=== PATIENT | male | born 1965 | race African-American/Black ===

== ENCOUNTER 2017-05-29 07:24 | Emergency (ER) | payer BC ==
--- NOTE | 2017-05-29 07:50 | ER Document Report ---
HPI - HPI Patient complains to provider of: Right side neck swelling Onset: Other - 5-6 years Onset/Duration: Persistent Quality of pain: Achy Pain Level: 1 Context: Patient presents complaining of right-sided neck swelling for the past 5-6 years. Patient states that area has become a little larger in size over the past 2-3 months. Patient denies any fever, sore throat or ear pain. Patient denies any dental pain Associated Symptoms: Other - Right-sided neck swelling. denies: Fever Exacerbated by: Denies Relieved by: Denies Similar symptoms previously: No Recently seen / treated by doctor: No - ROS ROS below otherwise negative: Yes Systems Reviewed and Negative: Yes All other systems reviewed and negative - CONSTITUTIONAL Constitutional: DENIES: Fever, Chills - EENT EENT: DENIES: Sore Throat, Ear Pain, Congestion - NEURO Neurology: DENIES: Headache - GASTROINTESTINAL Gastrointestinal: DENIES: Nausea, Patient vomiting - MUSCULOSKELETAL Musculoskeletal: REPORTS: Neck Pain - Mild tenderness - DERM Skin Color: Normal Skin Problems: None Past Medical History - General Information source: Patient - Social History Smoking Status: Never Smoker Chew tobacco use (# tins/day): No Frequency of alcohol use: None Drug Abuse: Marijuana Occupation: [employer] Family History: Reviewed & Not Pertinent - Medical History Medical History: Negative Renal/ Medical History: Denies: Hx Peritoneal Dialysis Surgical Hx: Negative Vertical Provider Document - CONSTITUTIONAL Agree With Documented VS: Yes Exam Limitations: No Limitations General Appearance: WD/WN, No Apparent Distress - INFECTION CONTROL TRAVEL OUTSIDE OF THE [place] IN LAST 30 DAYS: No - HEENT HEENT: Atraumatic, Normocephalic. negative: Pharyngeal Exudate, Pharyngeal Tenderness, Pharyngeal Erythema, Tympanic Membrane Red, Tympanic Membrane Bulging - NECK Neck: Lymphadenopathy-Left, Lymphadenopathy-Right - large mildly tender node to r anterior cervical chain - RESPIRATORY Respiratory: Breath Sounds Normal, No Respiratory Distress, Chest Non-Tender O2 Sat by Pulse Oximetry: 99 - CARDIOVASCULAR Cardiovascular: Regular Rate, Regular Rhythm, No Murmur - BACK Back: Normal Inspection - MUSCULOSKELETAL/EXTREMETIES Musculoskeletal/Extremeties: MAEW - NEURO Level of Consciousness: Awake, Alert, Appropriate Motor/Sensory: No Motor Deficit - DERM Integumentary: Warm, Dry, No Rash Course - Re-evaluation Re-evalutation: 05/29/17 10:[address] Rios regarding patient's presentation CT report. Agrees with discharge plan of care and outpatient follow-up with ENT doctor - Vital Signs Vital signs: Temp Pulse Resp BP Pulse Ox 98.0 F 71 18 125/82 99 05/29/17 07:27 05/29/17 07:27 05/29/17 07:27 05/29/17 07:27 05/29/17 07:27 - Laboratory Result Diagrams: 05/29/17 08:22 05/29/17 08:22 Laboratory results interpreted by me: 05/29/17 10:13 Labs- Entire Visit 05/29/17 05/29/17 08:22 08:22 WBC 6.5 RBC 4.53 Hgb 14.6 Hct 42.9 MCV 95 MCH 32.3 MCHC 34.1 RDW 12.8 Plt Count 202 Seg Neutrophils % 48.4 Lymphocytes % 40.5 Monocytes % 9.6 Eosinophils % 1.1 Basophils % 0.4 Absolute Neutrophils 3.2 Absolute Lymphocytes 2.6 Absolute Monocytes 0.6 Absolute Eosinophils 0.1 Absolute Basophils 0.0 Sodium 141.5 Potassium 4.5 Chloride 104 Carbon Dioxide 28 Anion Gap 10 BUN 12 Creatinine 0.86 Est GFR ( Amer) > 60 Est GFR (Non-Af Amer) > 60 Glucose 92 Calcium 9.9 - Diagnostic Test Radiology reviewed: Reports reviewed Discharge - Discharge Clinical Impression: Salivary gland stone Condition: Stable Disposition: HOME, SELF-CARE Additional Instructions: Return immediately for any new or worsening symptoms Followup with your primary care provider, call tomorrow to make a followup appointment Follow-up with an ear nose and throat doctor for further management of the salivary gland stone Forms: Return to Work Referrals: [facility] [Provider Group] - Follow up in 3-5 days
[2017-05-29 08:32] LABS: ABSOLUTE EOSINOPHILS # (AUTO) 0.1 10^3/uL (0.0-0.6); ABSOLUTE LYMPHOCYTES (AUTO) 2.6 10^3/uL (0.5-4.7); ABSOLUTE MONOCYTES (AUTO) 0.6 10^3/uL (0.1-1.4); ABSOLUTE NEUT (AUTO) 3.2 10^3/uL (1.7-8.2); BASOPHILS % (AUTO) 0.4 % (0-2); EOSINOPHILS % (AUTO) 1.1 % (0-6); HEMATOCRIT 42.9 % (37.9-51.0); HEMOGLOBIN 14.6 g/dL (13.5-17.0); HGB HCT DIFFERENCE 0.9; LYMPHOCYTES % (AUTO) 40.5 % (13-45); MEAN CORPUSCULAR HEMOGLOBIN 32.3 pg (27.0-33.4); MEAN CORPUSCULAR HGB CONC 34.1 g/dL (32.0-36.0); MEAN CORPUSCULAR VOLUME 95 fl (80-97); MONOCYTES % (AUTO) 9.6 % (3-13); RED BLOOD COUNT 4.53 10^6/uL (4.35-5.55); RED CELL DISTRIBUTION WIDTH 12.8 % (11.5-14.0); SEGMENTED NEUTROPHILS % (AUTO) 48.4 % (42-78); WHITE BLOOD COUNT 6.5 10^3/uL (4.0-10.5)
[2017-05-29 08:45] LABS: ANION GAP 10 (5-19); BLOOD UREA NITROGEN 12 mg/dL (7-20); CALCIUM 9.9 mg/dL (8.4-10.2); CARBON DIOXIDE 28 mmol/L (22-30); CHLORIDE 104 mmol/L (98-107); CREATININE RESULT 0.86 mg/dL (0.52-1.25); GLUCOSE 92 mg/dL (75-110); POTASSIUM 4.5 mmol/L (3.6-5.0); SODIUM 141.5 mmol/L (137-145)
--- NOTE | 2017-05-29 09:35 | RADIOLOGY REPORT (SQ) ---
EXAM DESCRIPTION: CT SOFT TISSUE NECK WITH COMPLETED DATE/TIME: 05/29/2017 9:08 am REASON FOR STUDY: swelling r side of neck COMPARISON: None. TECHNIQUE: Post IV contrasted scanning from skull base through lung apices with review of bone, soft tissue and lung windows. Reconstructed coronal and sagittal MPR images reviewed. All images stored on PACS. All CT scanners at this facility use dose modulation, iterative reconstruction, and/or weight based d osing when appropriate to reduce radiation dose to as low as reasonably achievable (ALARA). [facility]: Dose Right [facility]: CareDose [facility]: Dose Right [facility]: Teradose 4D [facility]: [employer] CONTRAST TYPE AND DOSE: contrast/concentration: Isovue 370.00 mg/ml; Total Contrast Delivered: 75.0 ml; Total Saline Delivered: 53.4 ml RENAL FUNCTION: Creatinine 0.86 RADIATION DOSE: Up-to-date CT equipment and radiation dose reduction techniques were employed. CTDIv ol: 15.7 mGy. DLP: 497 mGy-cm. . LIMITATIONS: None. FINDINGS: SKULL BASE: Intact. MAJOR SALIVARY GLANDS: 7 mm stone in the right submandibular gland at the origin of Barber's duct. The right submandibular gland is slightly larger than the left but there is no abnormal density or schmitz rrounding inflammatory change to suggest sialoadenitis. Remaining submandibular glands are unremarka ble. LYMPHADENOPATHY: No adenopathy. MUCOSAL MASSES OR ASYMMETRY: Prominent lingular tonsils but no definite mass. LARYNX/CORDS: No abnormal findings. VASCULAR STRUCTURES: The major vessels are patent. LUNG APICES: Clear. BONES: Intact. Moderate to severe degenerative changes involving the cervical spine. THYROID: Normal size. No masses. PARANASAL SINUSES: Clear. OTHER: No other significant finding. IMPRESSION: 1. 7 mm stone in the right submandibular gland. The gland appears slightly enlarged bu t there is no definite sialoadenitis. 2. Prominent lingular tonsils. TECHNICAL DOCUMENTATION: JOB ID: [id number] Quality ID # [id number]: Final reports with documentation of one or more dose reduction techniques (e.g., Au tomated exposure control, adjustment of the mA and/or kV according to patient size, use of iterative reconstruction technique) 2010 [employer]- All Rights Reserved
[2017-05-29 10:32] VITALS: BP 121/82
== END 2017-05-29 10:26 | disposition home or self-care (01) ==
LOC: ER 07:24
DX: K11.5 Sialolithiasis (principal); R22.1 Localized swelling, mass and lump, neck; M54.2 Cervicalgia
CPT/HCPCS: 36415; 70491; 80048; 85025; 99283

== ENCOUNTER → 2017-11-20 | Outpatient (CLI) | payer BC ==
--- NOTE | 2017-11-20 15:54 | RADIOLOGY REPORT (SQ) ---
EXAM DESCRIPTION: U/S THYROID/SFT TISS HD NECK COMPLETED DATE/TIME: 11/20/2017 3:41 pm REASON FOR STUDY: NONTOXIC SINGLE NODULE E04.1 NONTOXIC SINGLE THYROID NODULE COMPARISON: CT soft tissue neck with contrast 05/29/2017 TECHNIQUE: Dynamic and static gandhi-scale images acquired of the thyroid gland. Selected additional c olor/power Doppler images recorded. All images stored to PACS. LIMITATIONS: None. FINDINGS: The thyroid gland is normal in size with normal echogenicity. No cysts. No focal nodules . Right lobe thyroid 3.8 x 2.1 x 1.9 cm in size. Left lobe thyroid 4.8 x 1.9 x 1.8 cm in size. Isthmus 3 mm in thickness IMPRESSION: NORMAL THYROID ULTRASOUND. TECHNICAL DOCUMENTATION: JOB ID: [id number] [employer]- All Rights Reserved
== END ==
LOC: RAD 15:01
PROVIDERS: ATTEND Otolaryngology
DX: E04.1 Nontoxic single thyroid nodule (principal)
CPT/HCPCS: 76536

== ENCOUNTER 2018-11-09 10:33 | Emergency (ER) | payer BC ==
[2018-11-09 10:43] VITALS: BP 131/90
--- NOTE | 2018-11-09 10:52 | ER Document Report ---
HPI - HPI Patient complains to provider of: Medication refill Time Seen by Provider: 11/09/18 10:42 Onset/Duration: Persistent Pain Level: Denies Context: Patient states that he ran out of Viagra 2 weeks ago and is requesting a refill here today. Patient states he takes Viagra for erectile dysfunction. Patient states that he has not gotten established with a primary doctor here locally after relocating to this area. Associated Symptoms: Other - Erectile dysfunction Exacerbated by: Denies Relieved by: Denies Similar symptoms previously: Yes Recently seen / treated by doctor: No - ROS ROS below otherwise negative: Yes Systems Reviewed and Negative: Yes All other systems reviewed and negative - CONSTITUTIONAL Constitutional: DENIES: Fever - DERM Skin Color: Normal Skin Problems: None Past Medical History - General Information source: Patient - Social History Smoking Status: Current Every Day Smoker Smoking Education Provided: Yes Frequency of alcohol use: None Drug Abuse: None Occupation: [email or web address] Family History: Reviewed & Not Pertinent Renal/ Medical History: Reports: Other - Erectile dysfunction. Denies: Hx Peritoneal Dialysis Surgical Hx: Negative Vertical Provider Document - CONSTITUTIONAL Agree With Documented VS: Yes Exam Limitations: No Limitations General Appearance: WD/WN, No Apparent Distress - INFECTION CONTROL TRAVEL OUTSIDE OF THE [place] IN LAST 30 DAYS: No - HEENT HEENT: Atraumatic, Normocephalic - NECK Neck: Normal Inspection, Supple - RESPIRATORY Respiratory: Breath Sounds Normal, No Respiratory Distress - CARDIOVASCULAR Cardiovascular: Regular Rate, Regular Rhythm - MUSCULOSKELETAL/EXTREMETIES Musculoskeletal/Extremeties: MAEW - NEURO Level of Consciousness: Awake, Alert, Appropriate Motor/Sensory: No Motor Deficit - DERM Integumentary: Warm, Dry Course - Vital Signs Vital signs: Temp Pulse Resp BP Pulse Ox 97.6 F 78 14 131/90 H 100 11/09/18 10:42 11/09/18 10:42 11/09/18 10:42 11/09/18 10:42 11/09/18 10:42 Discharge - Discharge Clinical Impression: Erectile dysfunction Qualifiers: Erectile dysfunction type: unspecified Qualified Code(s): N52.9 - Male erectile dysfunction, unspecified Condition: Stable Disposition: HOME, SELF-CARE Instructions: Family Physicians / Practices Additional Instructions: Return immediately for any new or worsening symptoms Followup with your primary care provider, call today to make a followup appointment Forms: Smoking Cessation Education Referrals: [facility] [Provider Group] - Follow up as needed [facility] [Provider Group] - Follow up as needed
== END 2018-11-09 10:56 | disposition home or self-care (01) ==
LOC: ER 10:33
DX: N52.9 Male erectile dysfunction, unspecified (principal); Z79.899 Other long term (current) drug therapy; F17.200 Nicotine dependence, unspecified, uncomplicated
CPT/HCPCS: 99281

== ENCOUNTER 2018-11-21 05:37 | Day surgery (SDC) | payer BC ==
[~2018-11-21 05:37] MED LIST: CEFAZOLIN 2 GM/D5W RTU 2 GM/50 ML RTUPB IV PRN; LACTATED RINGERS 1000 ML IV PRN; LIDOCAINE 0.5% INJ-PF (5 MG/ML) 50 ML SDV SUBCUT PRN
[2018-11-21] MEDS ORDERED: CEFAZOLIN 2 GM/D5W RTU 2 GM/50 ML RTUPB IV ONE (06:20)
[2018-11-21] MEDS ORDERED: LIDOCAINE 2% INJ-PF (20 MG/ML) 10 ML AMPUL ONE (06:54)
[2018-11-21] MEDS ORDERED: MIDAZOLAM 2 MG/2 ML INJ ONE (06:54)
[2018-11-21] MEDS ORDERED: FENTANYL CITRATE INJ/PF 100 MCG/2 ML AMPUL ONE (06:54)
[2018-11-21] MEDS ORDERED: PROPOFOL INJ 200 MG/20 ML VIAL IV ONE (06:55)
[2018-11-21] MEDS ORDERED: ACETAMINOPHEN 1,000 MG/100 ML RTUPB IV ONE (06:55)
[2018-11-21] MEDS ORDERED: HYDROMORPHONE HCL INJ/PF 2 MG/ML AMPULE ONE (06:55)
[2018-11-21 06:56] LABS: HEMATOCRIT 40.2 % (37.9-51.0); MEAN CORPUSCULAR HEMOGLOBIN 32.3 pg (27.0-33.4); MEAN CORPUSCULAR HGB CONC 34.9 g/dL (32.0-36.0); MEAN CORPUSCULAR VOLUME 92 fl (80-97); PLATELET COUNT 194 10^3/uL (150-450); RED BLOOD COUNT 4.35 10^6/uL (4.35-5.55); WHITE BLOOD COUNT 5.9 10^3/uL (4.0-10.5)
[2018-11-21 07:08] LABS: ANION GAP 9 (5-19); BLOOD UREA NITROGEN 10 mg/dL (7-20); CALCIUM 9.1 mg/dL (8.4-10.2); CARBON DIOXIDE 26 mmol/L (22-30); CHLORIDE 107 mmol/L (98-107); GLUCOSE 112 mg/dL (75-110); POTASSIUM 4.2 mmol/L (3.6-5.0)
[2018-11-21] MEDS ORDERED: BUPIVACAINE HCL 0.5%-EPI 1:200000 INJ/PF 30 ML VIAL ONE (07:12)
[2018-11-21] MEDS ORDERED: BUPIVACAINE HCL 0.5%/EPI 1:200000 INJ 1.8 ML CARTRIDGE ONE ×2 (07:12→07:50)
[2018-11-21] MEDS ORDERED: TOBRAMYCIN SULFATE/DEXAMETH OPH OINTMENT 3.5 GM ONE (07:13)
[2018-11-21] MEDS ORDERED: BALANCED SALT IRRIG SOLN COMB2 15 ML BOTTLE ONE (07:13)
[2018-11-21] MEDS ORDERED: MEPERIDINE HCL/PF INJ 25 MG/1 ML DISP.SYRIN IV PRN (08:09)
[2018-11-21] MEDS ORDERED: PROMETHAZINE HCL INJ 25 MG/1 ML VIAL IV PRN ×2 (08:09→10:54)
[2018-11-21] MEDS ORDERED: MORPHINE SULFATE 10 MG/ML INJ IV PRN ×2 (08:09→10:54)
[2018-11-21] MEDS ORDERED: DIPHENHYDRAMINE HCL 50 MG/ML VIAL IV PRN (08:09)
[2018-11-21] MEDS ORDERED: ONDANSETRON HCL INJ/PF 4 MG/2 ML SDV IV PRN ×2 (08:09→10:54)
[2018-11-21] MEDS ORDERED: FENTANYL CITRATE INJ/PF 100 MCG/2 ML AMPUL IV PRN ×3 (08:09)
[2018-11-21] MEDS ORDERED: GLYCOPYRROLATE 1 MG/5 ML SYRINGE ONE (11:30)
[2018-11-21] MEDS ORDERED: DEXAMETHASONE SOD PHOSPHATE INJ 4 MG/1 ML VIAL ONE (11:30)
[2018-11-21] MEDS ORDERED: ONDANSETRON HCL INJ/PF 4 MG/2 ML SDV ONE (11:30)
[2018-11-21] MEDS ORDERED: PHENYLEPHRINE HCL INJ/PF 10 MG/1 ML SDV ONE (11:30)
[2018-11-21] MEDS ORDERED: SUCCINYLCHOLINE CHLORIDE INJ 200 MG/10 ML VIAL ONE (11:30)
[2018-11-21] MEDS ORDERED: ROCURONIUM BROMIDE INJ 50 MG/5 ML VIAL IV ONE (11:30)
[2018-11-21] MEDS: RINGERS SOLUTION,LACTATED 1,000 ML IV PRN (12:52)
[2018-11-21] MEDS: HYDROCODONE/ACETAMINOPHEN 5-325 MG TABLET PO PRN ×2 (16:46→21:02)
[2018-11-21] MEDS: AMOXICILLIN TR/POT CLAVULANATE 500-125 MG TAB PO SCH (18:17)
[2018-11-22] MEDS: AMOXICILLIN TR/POT CLAVULANATE 500-125 MG TAB PO SCH ×2 (02:46→09:10)
[2018-11-22] MEDS: HYDROCODONE/ACETAMINOPHEN 5-325 MG TABLET PO PRN ×2 (02:46→09:11)
[2018-11-22] MEDS: RINGERS SOLUTION,LACTATED 1,000 ML IV PRN (09:11)
[2018-11-22 14:57] VITALS: BP 124/77
--- NOTE | 2018-11-24 17:18 | OPERATIVE REPORT E ---
Operative Report NAME: CRISELDA TYLER : 1965 AGE: 53Y DATE OF SURGERY: 11/21/2018 ROOM: 422 PREOPERATIVE DIAGNOSIS: 1. RIGHT SUBMANDIBULAR GLAND SIALADENITIS. 2. RIGHT SUBMANDIBULAR GLAND SIALOLITHIASIS. 3. CHRONIC RIGHT NECK PAIN. POSTOPERATIVE DIAGNOSIS: 1. RIGHT SUBMANDIBULAR GLAND SIALADENITIS. 2. RIGHT SUBMANDIBULAR GLAND SIALOLITHIASIS. 3. CHRONIC RIGHT NECK PAIN. OPERATION: Right submandibular gland with duct and stone excision. SURGEON: ILIANA ARNDT D.O. ANESTHESIA: General endotracheal tube. ANESTHESIA STAFF: Eufemia MEDRANO. ESTIMATED BLOOD LOSS: 50 mL. COMPLICATIONS: None. DRAINS: Modified Neli drain. SPONGE COUNT: Verified. NEEDLE COUNT: Verified. MATERIALS FORWARD SPECIMEN: Right submandibular gland with stones measuring approximately 1 x 1 cm and ductal portion. FINDINGS: 1. Right submandibular gland with ductal portion and a stone noted during dissection measuring approximately 1 x 1 cm in size. There was no purulence noted. 2. Inflammatory changes noted during the dissection surrounding the submandibular gland. INDICATIONS: This is a 53-year-old -[place] male who has been seen and followed in the [place] [facility]ol[facility] office. The patient continues to complain of chronic right neck pain for greater than 3 years. 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 The patient had previously undergone PT neck imaging with contrast with a 7 mm stone noted within the right submandibular gland. There has been a consistent discussion with regard to definitive management which included excision of the right submandibular gland with stone and ductal portion. The procedure and all of its risks and complications were all discussed in detail with the patient. He voiced an understanding of the described surgical plan, agreed to proceed, and consent was obtained. PROCEDURE: The patient was taken to the main operating room and was placed on the operating room table in the supine position. Appropriate monitors were placed. The patient was also set up with NIM intraoperative nerve monitoring and it tested appropriately before beginning the case. There was a planned surgical incision site that was marked at the right neck. This area was infiltrated with local anesthetic with epinephrine. The patient was then prepped and draped in a sterile fashion for right neck surgery. The incision site was incised with a #15 blade scalpel down through the level of the subcutaneous tissue and the platysma. Flaps were elevated in a subplatysmal plane. Dissection was carried out to expose the right submandibular gland. The anterior and posterior belly of the digastric muscle were clearly identified. The submandibular gland was mobilized. Prominent blood vessels and bleeding were managed with bipolar electrocautery and suture ligation. The right submandibular gland stone was encountered during dissection and was approximately 1 x 1 cm in size. This was passed off for permanent pathology evaluation. During dissection, the sublingual nerve and cranial nerve XII/hypoglossal nerve were identified and preserved. The lingual nerve was released from the submandibular gland as the submandibular ganglion fibers were released. The duct was clearly identified and was ligated with suture and then transected. The specimen was passed off for permanent pathology evaluation. The wound site was clearly irrigated and adequate hemostasis was noted with bipolar electrocautery. At this point, a modified [place] drain was placed in the wound bed and brought out to the skin level. The site was closed in a layered fashion. Vicryl suture was used to reapproximate the platysmal layers. Monocryl 5-0 was used to reapproximate the subcutaneous tissue layers as well as the deep dermal layer. Monocryl 5-0 suture was used to place a continuous deep dermal suture to reapproximate skin margins. At this point, there were 2 rescue sutures placed and the drain was secured and placed with suture. At this point, a *------* dressing was placed and secured with conform wrap and silk tape. The patient was then returned to the anesthesia staff and was allowed to emerge from general anesthesia. The patient was extubated in the main operating room and was then transferred to the post anesthesia recovery unit in stable condition. There were no complications. DICTATING PHYSICIAN: ILIANA ARNDT D.O. [id number] PHY#: [id number] ID: [id number] JOB#: [id number] ACCT: [id number] cc:ILIANA ARNDT D.O. >
== END 2018-11-22 16:10 | disposition home or self-care (01) ==
LOC: OROUT 05:37 → 4W 12:40 → OROUT 11-22 16:10
PROVIDERS: ATTEND Otolaryngology
DX: K11.20 Sialoadenitis, unspecified (principal); K11.5 Sialolithiasis; G89.29 Other chronic pain; M54.2 Cervicalgia; K21.9 Gastro-esophageal reflux disease without esophagitis; F17.210 Nicotine dependence, cigarettes, uncomplicated; J38.4 Edema of larynx; F12.10 Cannabis abuse, uncomplicated; J30.9 Allergic rhinitis, unspecified; Z79.899 Other long term (current) drug therapy
CPT/HCPCS: 36415; 85027; 80048; 88300 ×2; 88307 ×2; 42699; J2250; J3490 ×4; J1100; J1170; J2370; J0330; J2405; J7120; J2704; J0690; J0131; 100; J3010